=== PATIENT | male | born 1940 | race Caucasian/White ===

== ENCOUNTER → 2019-08-16 | Outpatient (CLI) | payer MEDICARE, OTHER ==
--- NOTE | 2019-08-16 11:24 | CARD ---
MR#: [id number] Date of Study: 08/16/2019 Ordering Physician: JOSE ESPINOZA, Referring Physician: JOSE ESPINOZA, Tech: Anuradha Gomez RDCS APPROVED REPORT EXAM: Two-dimensional and M-mode echocardiogram with Doppler and color Doppler. Other Information Quality : Good INDICATION Cardiac Disease: CAD Surgery/Intervention CABG: Date: 2012 2D DIMENSIONS RVDd2.7 (2.9-3.5cm)Left Atrium(2D)3.9 (1.6-4.0cm) IVSd0.9 (0.7-1.1cm)Aortic Root(2D)3.8 (2.0-3.7cm) LVDd5.8 (3.9-5.9cm)LVOT Diameter2.2 (1.8-2.4cm) PWd0.9 (0.7-1.1cm)LVDs5.0 (2.5-4.0cm) FS (%) 13.4 %SV46.3 ml LVEF(%)28.2 (>50%) M-Mode DIMENSIONS MV EPSS1.7 (<0.5cm) Aortic Valve AoV Peak Aaron.220.9cm/sAoV VTI40.2cm AO Peak GR.19.5mmHgLVOT Peak Aaron.80.6cm/s LVOT VTI 15.58cmAO Mean GR.13mmHg STEPHEN (VMAX)1.86el7WSS (VTI)1.50cm2 AI P 1/2 Zwsv608on Mitral Valve MV E Yvmpldas80.5cm/sMV DECEL ICCJ957rt MV A Xlngonqj154.9cm/sE/A Ratio0.5 Tricuspid Valve TR P. Bxgyeudo726eh/sRAP YIJEOPKA8lxCp TR Peak Gr.39ubCqAIAN27hiHo Pulmonary Vein S1 Bepkypor21.1cm/sD2 Gvjyfanp76.2cm/s LEFT VENTRICLE The left ventricle is normal size. There is normal left ventricular wall thickness. Left ventricle sy stolic function is moderately impaired. The Ejection Fraction is 30-35%. There is global hypokinesis of the left ventricle. Transmitral Doppler flow pattern is Grade I-abnormal relaxation pattern. RIGHT VENTRICLE The right ventricle is normal size. The right ventricular systolic function is normal. ATRIA The left atrium is mildly dilated. The right atrium size is normal. The interatrial septum is intact with no evidence for an atrial septal defect or patent foramen ovale as noted on 2-D or Doppler imagi ng. AORTIC VALVE The aortic valve is calcified and displays decreased opening. Doppler and Color Flow revealed mild to moderate aortic regurgitation. Calculated aortic valve area is 1.5 cm2 with maximum pressure gradien t of 20 mmHg and mean pressure gradient of 13 mmHg. Doppler and color-flow analysis revealed mild aor tic stenosis. MITRAL VALVE The mitral valve is calcified but opens well. Mitral annular calcification is mild. There is no evide nce of mitral valve prolapse. There is no mitral valve stenosis. Doppler and Color-flow revealed mild mitral regurgitation. TRICUSPID VALVE The tricuspid valve is normal in structure and function. Doppler and Color Flow revealed trace to mil d tricuspid regurgitation. The PA pressure was estimated at 28 mmHg. There is no tricuspid valve sten osis. PULMONIC VALVE The pulmonary valve is normal in structure and function. Doppler and Color Flow revealed trace pulmon ic valvular regurgitation. There is no pulmonic valvular stenosis. GREAT VESSELS The aortic root is normal in size. The ascending aorta is mildly dilated at 3.6 cm. The IVC is normal in size and collapses >50% with inspiration. PERICARDIAL EFFUSION There is no evidence of significant pericardial effusion. Critical Notification Critical Value: No <Conclusion> Left ventricle systolic function is moderately impaired. The Ejection Fraction is 30-35%. Transmitral Doppler flow pattern is Grade I-abnormal relaxation pattern. Mild aortic stenosis. Mild to moderate aortic regurgitation. Mild mitral regurgitation. Trace to mild tricuspid regurgitation. The PA pressure was estimated at 28 mmHg. There is no evidence of significant pericardial effusion. Signed by : John Conklin, Electronically Approved : 08/16/2019 11:23:56
== END | disposition home or self-care (01) ==
LOC: ECHO 09:56
PROVIDERS: ATTEND Internal Medicine Cardiovascular Disease
DX: I08.3 Combined rheumatic disorders of mitral, aortic and tricuspid valves (principal); Z95.1 Presence of aortocoronary bypass graft
CPT/HCPCS: 93306